=== PATIENT | female | born 1965 | race Caucasian/White ===

== ENCOUNTER → 2020-05-26 | Outpatient (CLI) | payer BC, OTHER | END | disposition home or self-care (01) | LOC: CFH 08:51 | PROVIDERS: ATTEND Family Medicine | DX: Z12.31 Encounter for screening mammogram for malignant neoplasm of breast (principal); Z13.6 Encounter for screening for cardiovascular disorders; N63.23 Unspecified lump in the left breast, lower outer quadrant; N60.02 Solitary cyst of left breast; N60.01 Solitary cyst of right breast | CPT/HCPCS: 71046; 75571; 76641; 77063; 77067 ==